=== PATIENT | male | born 1980 | race Two or more races ===

== ENCOUNTER 2020-02-03 18:41 | Emergency (ER) | payer SELFPAY ==
[~2020-02-03] VITALS: Ht 177.8 cm; Wt 84.4 kg
[2020-02-03 19:12] VITALS: BP 106/69
== END 2020-02-03 19:40 | disposition home or self-care (01) ==
LOC: ED 19:15
DX: S01.112A Laceration without foreign body of left eyelid and periocular area, initial encounter (principal); W22.8XXA Striking against or struck by other objects, initial encounter; Y93.89 Activity, other specified; Y92.009 Unspecified place in unspecified non-institutional (private) residence as the place of occurrence of the external cause; Y99.8 Other external cause status
CPT/HCPCS: 12011; 99282